=== PATIENT | female | born 1980 | race Two or more races ===

== ENCOUNTER 2025-06-14 15:51 | Emergency (ER) | payer OTHER ==
[~2025-06-14] VITALS: Ht 149.9 cm; Wt 86.2 kg
[2025-06-14 18:04] LABS: PLATELET COUNT (AUTO) 260 K/uL (150-450); RED BLOOD CELL COUNT(AUTO) 4.20 MIL/uL (4.0-5.2); RED CELL DISTRIBUTION WIDTH 12.8 % (11.5-15.0); WHITE BLOOD COUNT (AUTO) 9.3 K/uL (4.3-11.0)
[2025-06-14 18:13] LABS: CALCIUM, SERUM 8.6 mg/dL (8.5-10.1); CREATININE 0.7 mg/dL (0.6-1.3); SODIUM SERUM 134 mmol/L (136-145); UREA NITROGEN, BLOOD 19 mg/dL (7-18)
[2025-06-14 19:07] VITALS: BP 149/81; TEMP 98.1; O2SAT 99
== END 2025-06-14 19:07 | disposition home or self-care (01) ==
LOC: ER 15:59
DX: R03.0 Elevated blood-pressure reading, without diagnosis of hypertension (principal); E11.9 Type 2 diabetes mellitus without complications
CPT/HCPCS: 36415; 71045-TC; 80048-TC; 84484-TC; 85025-TC